=== PATIENT | male | born 1960 | race Two or more races ===

== ENCOUNTER 2016-10-30 21:37 | Emergency (ER) | payer OTHER ==
[~2016-10-30] VITALS: Ht 162.6 cm; Wt 57.2 kg
[2016-10-30] MEDS ORDERED: Norco 5mg/325mg tab ORAL ONE (22:00)
[2016-10-30] MEDS ORDERED: IBUPROFEN600 MG ORAL (22:02)
[2016-10-30] MEDS ORDERED: HYDROCODON-ACE1 EA15 ORAL (22:02)
--- NOTE | 2016-10-30 22:02 | Emergency Room Report ---
History of Present Illness General Chief Complaint: Upper Extremity Injury Source: Patient Present Illness HPI Is a 56-year-old male with no significant past medical history. He presents with right rib pain. He fell against a metal railing yesterday. Pain to the right inferior rib area. Worse with movement. Worse with coughing. Pain is 7/ 10. Denies any loss of consciousness or any other injury. Allergies: Coded Allergies: No Known Allergies (Unverified , 10/30/16) Patient History Past Medical History: none Past Surgical History: none Pertinent Family History: none Social History: Denies: drug use Immunizations: other Reviewed Nursing Documentation: PMH: Agreed, PSxH: Agreed Nursing Documentation-PMH Past Medical History: No Stated History Review of Systems Eye: Denies: blurred vision, eye pain ENT: Denies: ear pain, nose congestion, throat swelling Respiratory: Denies: cough, shortness of breath Cardiovascular: Denies: chest pain, palpitations Gastrointestinal: Denies: abdominal pain, diarrhea, nausea, vomiting Musculoskeletal: Denies: back pain, joint pain Skin: Denies: rash Neurological: Denies: headache, numbness Endocrine: Denies: increased thirst, increased urine Hematologic/Lymphatic: Denies: easy bruising All Other Systems: negative except mentioned in HPI Physical Exam Vital Signs Date Time Temp Pulse Resp B/P Pulse Ox O2 Delivery O2 Flow Rate FiO2 10/30/16 21:45 98.2 74 18 124/78 98 Room Air vitals normal Sp02 EP Interpretation: reviewed, normal General Appearance: well appearing, no apparent distress, alert Head: normocephalic, atraumatic Eyes: bilateral eye EOMI, bilateral eye PERRL ENT: hearing grossly normal, normal pharynx Neck: full range of motion, supple, no meningismus Respiratory: lungs clear, normal breath sounds, other - TTP over right inferior ribs anteriorly. no crepitance. no ecchymosis. Cardiovascular #1: regular rate, rhythm, no murmur Gastrointestinal: normal bowel sounds, non tender, no mass, no organomegaly, no bruit, non-distended Musculoskeletal: back normal, gait/station normal, normal range of motion Psychiatric: mood/affect normal Skin: warm/dry Medical Decision Making Diagnostic Impression: Primary Impression: Contusion of rib on right side Qualified Codes: S20.211A - Contusion of right front wall of thorax, initial encounter ER Course Patient presents with contusion of the right inferior rib anteriorly. No ecchymosis. He let me palpate it without jumping away. Unlikely to be fracture. No crepitance. We'll discharge home with reassurance. Last Vital Signs Date Time Temp Pulse Resp B/P Pulse Ox O2 Delivery O2 Flow Rate FiO2 10/30/16 21:45 98.2 74 18 124/78 98 Room Air Status: unchanged Disposition: HOME, SELF-CARE Condition: Stable Scripts Ibuprofen* (MOTRIN*) 600 Mg Tablet 600 MG ORAL THREE TIMES A DAY, #30 TAB 0 Refills Prov: CASSIE AMADOR M.D. 10/30/16 Hydrocodone/Acetaminophen 5-325* (HYDROCODONE/ACETAMINOPHEN 5-325*) 1 Each Tablet 1 TAB ORAL Q6H Y for For Pain, #20 TAB 0 Refills Prov: CASSIE AMADOR M.D. 10/30/16 Additional Instructions: Followup with your Dr. in 7 days. Return if symptom worsen. CASSIE AMADOR M.D. Oct 30, 2016 22:02
[2016-10-30 22:09] VITALS: BP 128/70
[2016-10-30 22:20] VITALS: BP 124/78
== END 2016-10-30 22:20 | disposition home or self-care (01) ==
LOC: EMR 21:57
DX: S20.211A Contusion of right front wall of thorax, initial encounter (principal); W19.XXXA Unspecified fall, initial encounter; Y92.89 Other specified places as the place of occurrence of the external cause
CPT/HCPCS: 99284